=== PATIENT | male | born 1990 | race Caucasian/White ===

== ENCOUNTER 2018-07-13 13:54 | Emergency (ER) | payer MEDICAID ==
[~2018-07-13] VITALS: Ht 175.3 cm; Wt 63.6 kg
[2018-07-13 16:09] VITALS: BP 104/60
== END 2018-07-13 16:22 | disposition home or self-care (01) ==
LOC: EMS 13:56
DX: F11.10 Opioid abuse, uncomplicated (principal); F10.10 Alcohol abuse, uncomplicated; F17.210 Nicotine dependence, cigarettes, uncomplicated; F19.90 Other psychoactive substance use, unspecified, uncomplicated